=== PATIENT | female | born 1935 | race Caucasian/White ===

== ENCOUNTER → 2021-01-30 12:04 | Outpatient (BNVA) | payer MEDICARE, MEDICAID, SELFPAY | PROVIDERS: Visit Provider Nurse Practitioner Family | DX: E55.9 Vitamin D deficiency, unspecified (principal); I10 Essential (primary) hypertension; Z79.899 Other long term (current) drug therapy; F32.9 Major depressive disorder, single episode, unspecified; H81.10 Benign paroxysmal vertigo, unspecified ear; M19.90 Unspecified osteoarthritis, unspecified site; K21.9 Gastro-esophageal reflux disease without esophagitis | CPT/HCPCS: 80053; 80061; 81003; 82306; 83036; 84443; 85025 ==

== ENCOUNTER → 2023-03-14 14:07 | Outpatient (BNVA) | payer MEDICARE, MEDICAID, SELFPAY | PROVIDERS: PCP Nurse Practitioner; Visit Provider Nurse Practitioner | DX: I10 Essential (primary) hypertension (principal); E87.1 Hypo-osmolality and hyponatremia; E55.9 Vitamin D deficiency, unspecified | CPT/HCPCS: 80053; 80061; 82306; 84443; 85025 ==

== ENCOUNTER → 2024-05-22 13:48 | Outpatient (BNVA) | payer MEDICARE, MEDICAID, SELFPAY | PROVIDERS: PCP Nurse Practitioner; Visit Provider Nurse Practitioner Family | DX: I10 Essential (primary) hypertension (principal); F32.9 Major depressive disorder, single episode, unspecified; H81.10 Benign paroxysmal vertigo, unspecified ear; K21.9 Gastro-esophageal reflux disease without esophagitis; E55.9 Vitamin D deficiency, unspecified; Z79.899 Other long term (current) drug therapy; D64.9 Anemia, unspecified; E87.1 Hypo-osmolality and hyponatremia | CPT/HCPCS: 80053; 80061; 82306; 82728; 83036; 83550; 84443; 85025 ==

== ENCOUNTER → 2024-05-23 14:27 | Outpatient (BNVA) | payer MEDICARE, MEDICAID, SELFPAY | PROVIDERS: PCP Nurse Practitioner; Visit Provider Nurse Practitioner Family | DX: I10 Essential (primary) hypertension (principal); E55.9 Vitamin D deficiency, unspecified; Z79.899 Other long term (current) drug therapy; D64.9 Anemia, unspecified | CPT/HCPCS: 81003 ==

== ENCOUNTER → 2025-03-07 10:45 | Outpatient (BNVA) | payer MEDICARE, MEDICAID, SELFPAY | PROVIDERS: PCP Nurse Practitioner; Visit Provider Nurse Practitioner Family | DX: I10 Essential (primary) hypertension (principal); E55.9 Vitamin D deficiency, unspecified; E87.1 Hypo-osmolality and hyponatremia; E61.1 Iron deficiency; Z79.899 Other long term (current) drug therapy | CPT/HCPCS: 80053; 80061; 81003; 82306; 82728; 83036; 83550; 84443; 85025 ==

== ENCOUNTER → 2025-03-11 14:15 | Outpatient (BNVA) | payer MEDICARE, MEDICAID, SELFPAY | PROVIDERS: PCP Nurse Practitioner Family; Visit Provider Nurse Practitioner Family | DX: I10 Essential (primary) hypertension (principal); E55.9 Vitamin D deficiency, unspecified; E87.1 Hypo-osmolality and hyponatremia; E61.1 Iron deficiency; Z79.899 Other long term (current) drug therapy | CPT/HCPCS: 81003 ==